=== PATIENT | female | born 1965 | race Two or more races ===

== ENCOUNTER 2024-07-01 15:01 | Observation (INO) | payer MEDICAID, SELFPAY ==
--- NOTE | 2024-07-01 15:17 | PD.EDSYNC ---
ED Syncope RME/HPI General Chief Complaint: Syncope / Near Syncope Stated Complaint: SYNCOPAL Time Seen by Provider: 07/01/24 15:21 Arrival date/time: 07/01/24 15:01 RME / HPI RME / HPI narrative: 58 year old female presents to the ED BIBA from work for evaluation after syncopal episode today. Per medics, syncopal episode was witnessed by coworkers and only lasting a few seconds. Patient reports in the last 3 days has felt very fatigued and weak, unclear why. Per family at bedside, patient had complained of feeling very tired last night. While in the ED reports very mild abdominal discomfort. No other complaints reported. Denies fevers, chills, chest pain, cough, shortness of breath, nausea, vomiting, diarrhea, or urinary symptoms. Related Data Allergies Allergy/AdvReac Type Severity Reaction Status Date / Time No Known Allergies Allergy Verified 07/01/24 17:33 Review of Systems Review of Systems Narrative Review of Systems: Constitutional: DENIES; Fevers Eyes: DENIES; Loss of vision Head/Ear/Nose: DENIES; Loss of hearing Throat: DENIES; Dysphagia Cardiovascular: SE HPI +syncope DENIES; Chest pain, dyspnea Respiratory: DENIES; Shortness of breath Gastrointestinal: SEE HPI +abd discomfort. DENIES; Rectal bleeding or melena. Genitourinary: DENIES; Dysuria (painful or difficult urination) Musculoskeletal: DENIES; Arthralgia (pain in a joint),; Skin: DENIES; Rash Neurological: DENIES; Loss of function or movement Psychiatric: DENIES; recent major life stressor, emotional problem, illicit drug use or abuse Endocrinology: DENIES; Weight change Hematologic/Lymphatic: DENIES; Abnormal bruising Allergic/Immunologic: DENIES; Urticaria (hives) Past Medical History Social History SMOKING STATUS: Never smoker ED Exam Narrative Physical exam: Physical Exam: General: The vital signs were reviewed. The patient is non-toxic, in no apparent distress and appears healthy with a patent airway, no respiratory distress and has no apparent circulatory problems. Head & Scalp: Normocephalic, atraumatic. Face: Appears normal and is without lesions, deformity. Ears: Left external pinna appears normal. Right external pinna appears normal. Eyes: The sclera is anicteric. No obvious photophobia. The Left and Right Orbit/Lid/Conjunctiva appears normal without swelling, discoloration or injection. Nose: The nose is without deformity, discharge or tenderness; Throat: Appears normal. The mucous membranes are pink and moist without exudates, redness or mass seen. The tongue appears normal. Neck: The neck is supple and no apparent mass or adenopathy. Chest: The chest wall is normal in size and symmetry and has no chest wall tenderness or crepitus. The patient displays normal ventilator effort without retractions, accessory muscle use and has adequate air movement bilaterally with no wheezes and no rales. Cardiovascular: Regular rate and rhythm; No murmurs, rubs, or gallops; Gastrointestinal: The abdomen appears normal. No obvious hernias or mass. The abdomen is soft and benign, non-distended, with no pain, no guarding and no rebound tenderness. Bowel sounds are present and normal sounding. No CVA tenderness. Genitourinary: Back/Spine: Nontender Extremities/Musculoskeletal/lymphatic: The bilateral upper and lower extremities are warm. There is no evidence of arterial insufficiency. There is no evidence of venous insufficiency/edema. The patient spontaneously moves bilateral upper and lower extremities with no pain and no limitation of movement. There is no apparent, injury or trauma. Skin: The skin is warm, dry and intact. No rashes. No petechia. No purpura. No abnormal bruising. The color is appropriate with no cyanosis. Mental status/Psychiatric: Mental status is appropriate for age. The patient has no apparent delusions, visual hallucinations, no apparent audible hallucinations. The patient has no apparent suicidal thoughts/ideation and no apparent homicidal thoughts/ideation. Neurological: The patient is awake, alert, interactive, cordial, cooperative and is oriented to name and situation. The patient follows commands and answers historical question with no impairment. There is no visual disturbance apparent. The pupils are equal and reactive bilaterally with normal eye movements and no diplopia The bilateral upper and lower extremities have normal strength, normal range of motion and normal functioning. The gait, station and balance not tested due to acuity Course Quality Measures none Orders Category Date Time Status EKG (ED ONLY) *Do not use* NOW Care 07/01/24 15:23 Completed EKG (ED Only) Stat Exams 07/01/24 15:23 Draft XR chest 1V portable Stat Exams 07/01/24 15:23 Completed Alcohol, Blood Medical Stat Lab 07/01/24 15:38 Completed B-Type Natriuretic Peptide Stat Lab 07/01/24 15:38 Completed Blood Culture (Lab) Stat Lab 07/01/24 15:33 Received CBC Stat Lab 07/01/24 15:38 Completed Comprehensive Metabolic Panel Stat Lab 07/01/24 15:38 Completed D-Dimer Stat Lab 07/01/24 15:38 Completed Drug Screen,Urine Stat Lab 07/01/24 15:23 Ordered Lactate (Lactic Acid) Stat Lab 07/01/24 15:38 Completed Lipase Stat Lab 07/01/24 15:38 Completed Magnesium Stat Lab 07/01/24 15:38 Completed Troponin I Stat Lab 07/01/24 15:38 Completed Urinalysis Stat Lab 07/01/24 15:23 Ordered Urinalysis, C/S if Indicated Stat Lab 07/01/24 15:23 Ordered Venous Blood Gas Stat Lab 07/01/24 15:38 Completed Sodium Chloride 0.9% 1000 ml [Ns] 1,000 ml Med 07/01/24 15:22 Active IV 150 mls/hr Sodium Chloride 0.9% 1000 ml [Ns] 1,000 ml Med 07/01/24 15:22 Discontinued IV 999 mls/hr Vital Signs Vital signs: Vital Signs Temperature 98.0 F 07/01/24 15:21 Pulse Rate 79 07/01/24 15:21 Respiratory Rate 16 07/01/24 15:21 Blood Pressure 102/69 07/01/24 15:21 Pulse Oximetry (%) 98 07/01/24 15:21 Oxygen Delivery Method Room Air 07/01/24 15:21 Pulse ox is 98% on room air which is adequate. Syncope MDM Narrative MDM Narrative:: Dorene Contreras am scribing for and in the presence of Dr. Conde. Patient presents with possible near syncopal event difficult to sort out the actual events because she is English speaking only and the bisque cleaner is a friend patient had an event where she got weak nauseated sweaty had some vague posterior neck symptoms and vague anterior chest symptoms. Clinical exam was unremarkable. On arrival and reevaluation at 1835 hrs. is normal again. Medical workup revealed EKG unremarkable D-dimer was negative CBC with white count 8.4 hemoglobin of 13.1 lactic acid 1.2 transaminases were negative BNP is lipase normal alcohol level 0 Patient is a smoker. Chest x-ray has some COPD but otherwise negative. Clinically patient does not appear ill but when I go back in the room the bisque cleaner states she still does not feel right she is scared that something happened uncertain if this is just anxiety and a panic attack though the friend states she is not an anxious person. So at 1840 hrs. and when to get a second troponin scanner chest rule out dissection in the care of be transferred Dr. Fuller at this time to follow-up on these results. Patient data External records reviewed:: [facility] previous records (I reviewed ED visit on 07/12/2023) and EMS form Clinical information provided by:: patient, EMS and family Social determinants that could affect healthcare access:: none Patient has the following chronic illnesses:: None How is presenting disease/condition affected by chronic disease/condition?: no chronic disease Evaluation data The following diagnostics were reviewed and interpreted by me:: lab results, radiology exam(s) and EKG tracing(s) (Sinus rhythm, rate , no STEMI) Lab and/or radiology exams considered but not ordered:: None Interpretation Summary: Ordering Physician: Misael Conde MD Date of Service: 07/01/24 Procedure(s): XR chest 1V portable Accession Number(s): [id number] cc: Misael Conde MD; Yinka Alvarado MD~ Examination: AP chest single view Technique one AP portable upright chest single view Exam date and time: July 01, 2024 1547 hours INDICATIONS: Chest pain today. FINDINGS: Normal heart size No pneumonia or pulmonary edema Moderate osteopenia IMPRESSION: No pneumonia or pulmonary edema Dictated By: Yinka Alvarado MD Signed By: <Electronically signed by Yinka Alvarado MD in [place]> 07/01/24 1558 Medications / Prescriptions Medications or Prescriptions considered but not ordered:: None Medication administrations:: Medication Administration History Sodium Chloride (Ns) 1,000 mls @ 150 mls/hr IV .[id number] ONE Stop: 07/01/24 22:01 Last Admin: 07/01/24 17:37 Dose: 150 mls/hr Documented By: TM Discontinued Medications Sodium Chloride (Ns) 1,000 mls @ 999 mls/hr IV .Q1H1M ONE Stop: 07/01/24 16:22 Last Admin: 07/01/24 17:36 Dose: 999 mls/hr Documented By: TM See above Consultations Consultation(s) initiated? (list below): No Diagnosis Syncope Differential Diagnosis: syncope due to orthostatic hypotension, vasovagal syncope, complete atrioventricular block and dehydration Most likely diagnosis given after review of the tests above:: Near syncopal event etiology unclear with diaphoresis with vague head and chest symptoms. CT scan pending to rule out thoracic etiology and second troponin to rule out occult ischemia Admission Indicated Admission indicated?: not indicated Explain why admission is indicated or not indicated:: Signed out to Dr. Fuller pending final disposition Admission Request Was there a request for admission?: No Disposition Plan Disposition Plan: other (specify) (Signed out to Dr. Fuller ) Discharge Plan Prescriptions/Referrals Referrals: No Primary/Family,Physician [Primary Care Provider] - In 1 week Problem List Clinical Impression: Near syncope, Diaphoresis, Tobacco use Patient/Caregiver Discharge Instructions Print Language: English
[2024-07-01 15:21] VITALS: BP 102/69; PULSE 79; RESP 16; TEMP 36.7; O2SAT 98
[2024-07-01 15:22] VITALS: BMI 23.6
--- NOTE | 2024-07-01 15:23 | XR_ITS ---
Examination: AP chest single view Technique one AP portable upright chest single view Exam date and time: July 01, 2024 1547 hours INDICATIONS: Chest pain today. FINDINGS: Normal heart size No pneumonia or pulmonary edema Moderate osteopenia IMPRESSION: No pneumonia or pulmonary edema
--- NOTE | 2024-07-01 15:23 | EKG_ITS ---
[facility] Test Date: 2024-07-01 Pat Name: HARLEY VALE Department: Room: - Gender: Female Staff Certified Nurse Midwife: : 1965 Requested By: Misael Conde Order Number: [id number] Reading MD: Misael Conde Measurements Intervals [place] Rate: 65 P: 70 CO: 155 QRS: 65 QRSD: 87 T: 56 QT: 407 QTc: 425 Interpretive Statements SINUS RHYTHM No previous ECG available for comparison /store/S0/[id number]/ecg/[id number].pdf
[2024-07-01 15:30] VITALS: BMI 23.6
[2024-07-01 15:50] LABS: Base Excess, Venous 1 (-3-3); Basophils % (Auto) 0 % (0-2.5); Eosinophils # (Auto) 0.1 Thou/mm3 (0.0-0.5); Eosinophils % (Auto) 1 % (0-10); Hematocrit 39.1 % (36.0-46.0); Hemoglobin 13.1 g/dL (12.0-16.0); Immature Granulocytes % (Auto) 0 % (0-0); Immature Granulocytes Auto 0.02 Thou/mm3 (0.00-0.00); Lactate (Lactic Acid) 1.2 mMol/L (0.4-2.0); Lymphocytes # (Auto) 1.2 Thou/mm3 (1.0-4.8); Lymphocytes % (Auto) 14 % (10-50); Mean Corpuscular HGB Conc 33.5 g/dl (31.0-37.0); Mean Corpuscular Hemoglobin 28.8 pg (25.0-35.0); Mean Corpuscular Volume 86 fL (80-100); Monocytes # (Auto) 0.4 Thou/mm3 (0.0-0.8); Monocytes % (Auto) 4 % (0-12); Neutrophils # (Auto) 6.7 Thou/mm3 (1.8-7.7); Neutrophils % (Auto) 81 % (37-80); Nucleated Red Blood Cell % 0 /100 WBC (0); O2 Saturation, Venous 73 % (96-97); PCO2, Venous 38 mmHg (36-56); PO2, Venous 35 mmHg (15-58); Platelet Count 250 Thou/mm3 (140-440); RDW Standard Deviation 39.9 fL (36.4-46.3); Red Blood Count 4.55 Miln/mm3 (4.00-5.20); White Blood Count 8.4 Thou/mm3 (3.6-11.0); pH, Venous 7.43 (7.33-7.66)
[2024-07-01 16:09] LABS: B-Type Natriuretic Peptide 22 pg/mL (0-100)
[2024-07-01 16:14] LABS: D-Dimer < 250 ng/mL (<600)
[2024-07-01 16:25] LABS: Alanine Aminotransferase 10 U/L (10-49); Albumin, Serum 4.4 gm/dL (3.5-5.0); Albumin/Globulin Ratio 1.8 (1.2-2.2); Alcohol, Blood Medical < 3.0 mg/dL (0-10.0); Alkaline Phosphatase 72 U/L (46-116); Anion Gap 6 (7-16); Aspartate Amino Transferase 16 U/L (0-34); BUN/Creatinine Ratio 16 Ratio (12-20); Bilirubin,Total 0.6 mg/dL (0.3-1.2); Blood Urea Nitrogen 16 mg/dL (9-23); Calcium 9.3 mg/dL (8.3-10.6); Calcium (Corrected) 9.3 mg/dL (8.5-10.1); Carbon Dioxide 29.2 mMol/L (20.0-31.0); Chloride 103 mMol/L (98-107); Estimated Creatinine Clearance 63.3 mL/min (>60); Globulin 2.4 gm/dL (2.3-3.5); Glucose 113 mg/dL (74-106); Lipase 29 U/L (12-53); Osmolality,Calculated 277 (275-295); Potassium 4.5 mMol/L (3.4-5.1); Sodium 138 mMol/L (136-145); Total Protein 6.8 gm/dL (5.7-8.2); Troponin I < 0.002 ng/mL (0.0-0.045); eGFR > 60 See Note
[2024-07-01 16:32] VITALS: BP 107/75; PULSE 65; RESP 16; TEMP 36.7; O2SAT 97
[2024-07-01] MEDS: SODIUM CHLORIDE 0.9% 1000 ML 1,000 ML 999 ML IV (17:36)
[2024-07-01] MEDS: SODIUM CHLORIDE 0.9% 1000 ML 1,000 ML 150 ML IV (17:37)
[2024-07-01 18:00] VITALS: BP 105/72; PULSE 65; RESP 16; TEMP 36.8; O2SAT 98
--- NOTE | 2024-07-01 18:42 | XR_ITS ---
Examination: CTA chest with intravenous contrast 2-D reconstructions 3-D reconstructions, vascular Date and time of exam: July 01, 20242021 hrs. Indications: Onset chest pain shortness of breath today CTDI: vol (mGy) 24.45 DLP: (mGycm) 590 Technique: Multiple axial sections of the thorax have been obtained. 3 mm slice thickness, from below the hemidiaphragms to above the apices of the lungs. Mediastinal and lung density settings have been obtained. 2-D sagittal and coronal reconstructions. 3-D angiographic renderings, 3-D volume renderings, 3D post processing, vascular maximum intensity projections obtained. Contrast administered is 100 cc Isovue-370. Low dose protocols were performed. One or more of the following dose reduction techniques were used; automated exposure control, adjustment of the mA and/or KV according to patient size, use of iterative reconstruction technique. Findings: Right-sided thoracic aortic arch No thoracic aortic aneurysm dilatation or dissection Pulmonary artery segments are not enlarged No pulmonary artery emboli Mild enlargement cardiac contour Mild vascular congestion Mild pneumonia both bases Minimal bilateral pleural effusion Fatty infiltration throughout the liver No gallstones Abnormal retroperitoneal density surrounding the aorta as well as surrounding the kidneys No hydronephrosis Impression: Right-sided thoracic aortic arch, negative for thoracic aortic aneurysm dilatation or dissection Negative for pulmonary artery emboli Mild vascular congestion Abnormal density in the retroperitoneum surrounding the abdominal aorta and the kidneys, differential would include lymphadenopathy, retroperitoneal fibrosis, retroperitoneal infectious process, clinical correlation advised Recommend CTA abdomen pelvis post contrast in the a.m. when the current contrast load has cleared
--- NOTE | 2024-07-01 18:45 | XR_ITS ---
Examination: CT brain head without contrast. 2-D sagittal coronal reconstructions Date and time of exam:July 01, 20242031 hrs. Indications: Syncopal episode today with headache CTDI: vol (mGy):44.0 DLP: (mGycm):919 Technique: Multiple CT axial sections of the brain have been obtained, 5 mm slice thickness. Contrast has not been administered. 2-D sagittal, coronal reconstructions have been obtained Low dose protocols were performed. One or more of the following dose reduction techniques were used; automated exposure control, adjustment of the mA and/or KV according to patient size, use of iterative reconstruction technique. Findings: No significant ventricular enlargement. Intra-axial or extra-axial hemorrhage density is not seen. No mass effect or midline shift Basal cisterns are not remarkable. Fourth ventricle is midline. Cranial vault intact. Impression: Negative for acute hemorrhage, mass effect or midline shift Significant chronic ethmoid sinusitis Acute left sphenoid sinusitis
--- NOTE | 2024-07-01 18:48 | EDNOTE_ITS ---
Emergency Room Addendum <Elham Stein - Last Filed: 07/01/24 21:58> Addendum Narrative: 1800: Care assumed from Dr. Conde, the previous shift emergency physician. Past medical, surgical, social and family history reviewed. Vitals and home medications reviewed. I will assume the care of the patient at this time, pending chest CTA, head CT, remainder of labs, and final disposition. Please refer to the emergency department record for history and examination from initial visit.? Physical exam by me shows patient under no acute distress at this time. Lungs are clear. Repeat trop negative, < 0.020. RADIOLOGY Procedure(s): CT head/brain wo con Accession Number(s): [id number] cc: Misael Conde MD; Yinka Alvarado MD; NO PRIMARY/FAMILY,PHYSICIAN~ Examination: CT brain head without contrast. 2-D sagittal coronal reconstructions Date and time of exam:July 01, 20242031 hrs. Indications: Syncopal episode today with headache CTDI: vol (mGy):44.0 DLP: (mGycm):919 Technique: Multiple CT axial sections of the brain have been obtained, 5 mm slice thickness. Contrast has not been administered. 2-D sagittal, coronal reconstructions have been obtained Low dose protocols were performed. One or more of the following dose reduction techniques were used; automated exposure control, adjustment of the mA and/or KV according to patient size, use of iterative reconstruction technique. Findings: No significant ventricular enlargement. Intra-axial or extra-axial hemorrhage density is not seen. No mass effect or midline shift Basal cisterns are not remarkable. Fourth ventricle is midline. Cranial vault intact. Impression: Negative for acute hemorrhage, mass effect or midline shift Significant chronic ethmoid sinusitis Acute left sphenoid sinusitis Dictated By: Yinka Alvarado MD Procedure(s): CT angio chest Accession Number(s): [id number] cc: Misael Conde MD; Yinka Alvarado MD; NO PRIMARY/FAMILY,PHYSICIAN~ Examination: CTA chest with intravenous contrast 2-D reconstructions 3-D reconstructions, vascular Date and time of exam: July 01, 20242021 hrs. Indications: Onset chest pain shortness of breath today CTDI: vol (mGy) 24.45 DLP: (mGycm) 590 Technique: Multiple axial sections of the thorax have been obtained. 3 mm slice thickness, from below the hemidiaphragms to above the apices of the lungs. Mediastinal and lung density settings have been obtained. 2-D sagittal and coronal reconstructions. 3-D angiographic renderings, 3-D volume renderings, 3D post processing, vascular maximum intensity projections obtained. Contrast administered is 100 cc Isovue-370. Low dose protocols were performed. One or more of the following dose reduction techniques were used; automated exposure control, adjustment of the mA and/or KV according to patient size, use of iterative reconstruction technique. Findings: Right-sided thoracic aortic arch No thoracic aortic aneurysm dilatation or dissection Pulmonary artery segments are not enlarged No pulmonary artery emboli Mild enlargement cardiac contour Mild vascular congestion Mild pneumonia both bases Minimal bilateral pleural effusion Fatty infiltration throughout the liver No gallstones Abnormal retroperitoneal density surrounding the aorta as well as surrounding the kidneys No hydronephrosis Impression: Right-sided thoracic aortic arch, negative for thoracic aortic aneurysm dilatation or dissection Negative for pulmonary artery emboli Mild vascular congestion Abnormal density in the retroperitoneum surrounding the abdominal aorta and the kidneys, differential would include lymphadenopathy, retroperitoneal fibrosis, retroperitoneal infectious process, clinical correlation advised Recommend CTA abdomen pelvis post contrast in the a.m. when the current contrast load has cleared Dictated By: Yinka Alvarado MD Procedure(s): XR chest 1V portable Accession Number(s): [id number] cc: Misael Conde MD; Yinka Alvarado MD~ Examination: AP chest single view Technique one AP portable upright chest single view Exam date and time: July 01, 2024 1547 hours INDICATIONS: Chest pain today. FINDINGS: Normal heart size No pneumonia or pulmonary edema Moderate osteopenia IMPRESSION: No pneumonia or pulmonary edema Dictated By: Yinka Alvarado MD <Annalise Kwadwo - Last Filed: 07/02/24 05:49> Addendum Narrative: 1800: Care assumed from Dr. Conde, the previous shift emergency physician. Past medical, surgical, social and family history reviewed. Vitals and home medications reviewed. I will assume the care of the patient at this time, pending chest CTA, head CT, remainder of labs, and final disposition. Please refer to the emergency department record for history and examination from initial visit.? Physical exam by me shows patient under no acute distress at this time. Lungs are clear. Repeat trop negative, < 0.020. Patient received 100mL of contrast. Per Dr. Alvarado, patient can get a repeat CT abdomen pelvis this morning. I will repeat her BMP to ensure the patient's kidneys are stable, and if it's normal, I will re-order the CT. 0600: Care signed out to Dr. Gallo (emergency physician). Past medical, surgical, social and family history reviewed. Vitals and home medications reviewed. Results and treatment plan discussed. They will assume the care of the patient at this time and will follow the patient, pending BMP, and CTA abdomen pelvis if it's normal. RADIOLOGY Procedure(s): CT head/brain wo con Accession Number(s): [id number] cc: Misael Conde MD; Yinka Alvarado MD; NO PRIMARY/FAMILY,PHYSICIAN~ Examination: CT brain head without contrast. 2-D sagittal coronal reconstructions Date and time of exam:July 01, 20242031 hrs. Indications: Syncopal episode today with headache CTDI: vol (mGy):44.0 DLP: (mGycm):919 Technique: Multiple CT axial sections of the brain have been obtained, 5 mm slice thickness. Contrast has not been administered. 2-D sagittal, coronal reconstructions have been obtained Low dose protocols were performed. One or more of the following dose reduction techniques were used; automated exposure control, adjustment of the mA and/or KV according to patient size, use of iterative reconstruction technique. Findings: No significant ventricular enlargement. Intra-axial or extra-axial hemorrhage density is not seen. No mass effect or midline shift Basal cisterns are not remarkable. Fourth ventricle is midline. Cranial vault intact. Impression: Negative for acute hemorrhage, mass effect or midline shift Significant chronic ethmoid sinusitis Acute left sphenoid sinusitis Dictated By: Yinka Alvarado MD Procedure(s): CT angio chest Accession Number(s): [id number] cc: Misael Conde MD; Yinka Alvarado MD; NO PRIMARY/FAMILY,PHYSICIAN~ Examination: CTA chest with intravenous contrast 2-D reconstructions 3-D reconstructions, vascular Date and time of exam: July 01, 20242021 hrs. Indications: Onset chest pain shortness of breath today CTDI: vol (mGy) 24.45 DLP: (mGycm) 590 Technique: Multiple axial sections of the thorax have been obtained. 3 mm slice thickness, from below the hemidiaphragms to above the apices of the lungs. Mediastinal and lung density settings have been obtained. 2-D sagittal and coronal reconstructions. 3-D angiographic renderings, 3-D volume renderings, 3D post processing, vascular maximum intensity projections obtained. Contrast administered is 100 cc Isovue-370. Low dose protocols were performed. One or more of the following dose reduction techniques were used; automated exposure control, adjustment of the mA and/or KV according to patient size, use of iterative reconstruction technique. Findings: Right-sided thoracic aortic arch No thoracic aortic aneurysm dilatation or dissection Pulmonary artery segments are not enlarged No pulmonary artery emboli Mild enlargement cardiac contour Mild vascular congestion Mild pneumonia both bases Minimal bilateral pleural effusion Fatty infiltration throughout the liver No gallstones Abnormal retroperitoneal density surrounding the aorta as well as surrounding the kidneys No hydronephrosis Impression: Right-sided thoracic aortic arch, negative for thoracic aortic aneurysm dilatation or dissection Negative for pulmonary artery emboli Mild vascular congestion Abnormal density in the retroperitoneum surrounding the abdominal aorta and the kidneys, differential would include lymphadenopathy, retroperitoneal fibrosis, retroperitoneal infectious process, clinical correlation advised Recommend CTA abdomen pelvis post contrast in the a.m. when the current contrast load has cleared Dictated By: Yinka Alvarado MD ------- Procedure(s): XR chest 1V portable Accession Number(s): [id number] cc: Misael Conde MD; Yinka Alvarado MD~ Examination: AP chest single view Technique one AP portable upright chest single view Exam date and time: July 01, 2024 1547 hours INDICATIONS: Chest pain today. FINDINGS: Normal heart size No pneumonia or pulmonary edema Moderate osteopenia
[2024-07-01 19:40] VITALS: BP 111/74; PULSE 65; RESP 18; TEMP 36.7; O2SAT 98
[2024-07-01 19:41] LABS: Troponin I < 0.020 ng/mL (0.0-0.045)
--- NOTE | 2024-07-01 19:45 | PC.NURSE ---
Pt ambulated to bathroom with steady gait; stand-by assist provided for safety. Urine specimen collected and sent to lab.
--- NOTE | 2024-07-01 19:56 | PC.NURSE ---
Ct called to inform them pt is ready for CT at this time, spoke to Reji.
[2024-07-01 20:00] LABS: Collection Type, Urine Clean Catch
[2024-07-01 20:13] LABS: Bilirubin,Urine Negative (Negative); Blood,Urine Negative (Negative); Clarity,Urine Clear (Clear/Hazy); Color,Urine Lt-Yellow (Lt Yel-Yel); Culture Indicated,Urine Not Indicated; Glucose, Urine Negative (Negative); Hyaline Casts,Urine 1 /hpf (0-1); Ketones,Urine 1+ (Negative); Leukocyte Esterase,Urine Negative (Negative); Nitrite,Urine Negative (Negative); Protein,Urine Trace (Neg - Trace); RBC,Urine 2 /hpf (0-3); Squamous Epithelial Cell,Urine < 1 /hpf (0-5); Urobilinogen,Urine Negative mg/dL (0.0-1.0); WBC,Urine 1 /hpf (0-5)
--- NOTE | 2024-07-01 20:24 | PC.NURSE ---
Pt to CT scan at this time.
[2024-07-01 23:03] LABS: Amphetamine/Methamp Scrn,U Negative (Negative); Barbiturate Screen,Urine Negative (Negative); Benzodiazepines Screen,Urine Negative (Negative); Benzoylecgonine Screen, Ur Negative (Negative); Fentanyl Screen,Urine Negative (Negative); Opiate Screen,Urine Negative (Negative); THC Screen,Urine Negative (Negative)
[2024-07-01 23:40] VITALS: BP 116/68; PULSE 65; RESP 20; TEMP 36.7; O2SAT 96
[2024-07-02] VITALS (14 sets, daily range): BP systolic 99–138; BP diastolic 67–81; PULSE 64–85; RESP 12–21; TEMP 36.4–36.9; O2SAT 95–99; BMI 25.1
--- NOTE | 2024-07-02 06:32 | XR_ITS ---
Examination: CTA abdomen, with intravenous contrast. CTA pelvis, with intravenous contrast. 2-D sagittal and coronal reconstructions. 3-D reconstructions. Date and time of exam: July 02, 2024 0854 hours INDICATIONS: Shortness of breath chest pain today, abnormal retroperitoneal density noticed on CT chest examination yesterday CTDI vol (mgy) 10.9 DLP (MGycm) 625 Technique: Multiple CTA images, 2.0 mm slice thickness, obtained chest, abdomen, pelvis, with the high-resolution 64 slice scanner. 100 cc Isovue-370 is administered intravenously. Sagittal and coronal 2-D reconstructions are obtained. 3-D reconstructions, angiographic images are obtained. 3-D postprocessing, including vascular maximum intensity projections. Low dose protocols were performed. One or more of the following dose reduction techniques were used; automated exposure control, adjustment of the mA and/or KV according to patient size, use of iterative reconstruction technique. Findings: Small bilateral pleural effusions No focal liver or splenic lesions Suspicious for small gallstones No pancreatic mass Retroperitoneal density surrounds the kidneys which may represent fluid, which extends caudad into the abdomen and pelvis Abdominal aorta is not enlarged No bowel obstruction No pericecal inflammatory change There is mild diffuse wall thickening involving the colon Retroverted uterus with areas of calcified fibroid degeneration Moderate osteopenia Urinary bladder is intact IMPRESSION: Retroperitoneal density surrounds the kidneys extending into the lower abdomen and pelvis which appears to be fluid, differential would include prominent urinary tract infection, nephritis, primary hepatocellular disease producing ascites No definite pericaval or periaortic significant lymphadenopathy No bowel obstruction Recommend hepatobiliary sonography follow-up to exclude gallstones
[2024-07-02 06:49] LABS: Anion Gap 5 (7-16); BUN/Creatinine Ratio 17 Ratio (12-20); Blood Urea Nitrogen 12 mg/dL (9-23); Calcium 8.5 mg/dL (8.3-10.6); Carbon Dioxide 27.7 mMol/L (20.0-31.0); Chloride 107 mMol/L (98-107); Creatinine (Component) 0.7 mg/dL (0.6-1.3); Estimated Creatinine Clearance 90.4 mL/min (>60); Glucose 96 mg/dL (74-106); Osmolality,Calculated 279 (275-295); Potassium 3.9 mMol/L (3.4-5.1); Sodium 140 mMol/L (136-145); eGFR > 60 See Note
--- NOTE | 2024-07-02 07:45 | PC.NURSE ---
Pt. here from home to room 9, pt. states at this time she just has a CARBAJAL, 10/17, pt. states she wants to rest, pt. denies nausea, vomiting or weakness at this time. Pt. up to use RR, steady on her feet, no s/s of distress at this time.
--- NOTE | 2024-07-02 09:39 | PD.EDADDENDU ---
Emergency Room Addendum Addendum Narrative: 0600: Care assumed from Dr. Fuller, the previous shift emergency physician. Past medical, surgical, social and family history reviewed. Vitals and home medications reviewed. I will assume the care of the patient at this time, pending CTA abdomen/pelvis. Please refer to the emergency department record for history and examination from initial visit.? EMS notes reviewed by me. Nursing notes reviewed by me. Vital signs reviewed by me. [facility] medical records reviewed by me. 1000: I discussed CT results with radiologist Dr. Alvarado. Reports he may be able to drain the fluid for testing. An IR retroperitoneal drainage was ordered. 1015: With the help of an pile driving superintendent we reviewed all the results, analysis, and treatment plans with the patient. She is in agreement with plan for IR drainage. 1035: I spoke with residents working with hospitalist Dr. Gurrola. Discussed patients PMHx, HPI, ED course, exam findings, labs, and radiology results. Will come evaluate the patient in the ED. Patient has been accepted for admission by Dr. Gurrola. RADIOLOGY Ordering Physician: Dashawn Gallo MD Date of Service: 07/02/24 Procedure(s): CT angio abdomen pelvis Accession Number(s): [id number] cc: Dashawn Gallo MD; Yinka Alvarado MD; NO PRIMARY/FAMILY,PHYSICIAN~ Examination: CTA abdomen, with intravenous contrast. CTA pelvis, with intravenous contrast. 2-D sagittal and coronal reconstructions. 3-D reconstructions. Date and time of exam: July 02, 2024 0854 hours INDICATIONS: Shortness of breath chest pain today, abnormal retroperitoneal density noticed on CT chest examination yesterday CTDI vol (mgy) 10.9 DLP (MGycm) 625 Technique: Multiple CTA images, 2.0 mm slice thickness, obtained chest, abdomen, pelvis, with the high-resolution 64 slice scanner. 100 cc Isovue-370 is administered intravenously. Sagittal and coronal 2-D reconstructions are obtained. 3-D reconstructions, angiographic images are obtained. 3-D postprocessing, including vascular maximum intensity projections. Low dose protocols were performed. One or more of the following dose reduction techniques were used; automated exposure control, adjustment of the mA and/or KV according to patient size, use of iterative reconstruction technique. Findings: Small bilateral pleural effusions No focal liver or splenic lesions Suspicious for small gallstones No pancreatic mass Retroperitoneal density surrounds the kidneys which may represent fluid, which extends caudad into the abdomen and pelvis Abdominal aorta is not enlarged No bowel obstruction No pericecal inflammatory change There is mild diffuse wall thickening involving the colon Retroverted uterus with areas of calcified fibroid degeneration Moderate osteopenia Urinary bladder is intact IMPRESSION: Retroperitoneal density surrounds the kidneys extending into the lower abdomen and pelvis which appears to be fluid, differential would include prominent urinary tract infection, nephritis, primary hepatocellular disease producing ascites No definite pericaval or periaortic significant lymphadenopathy No bowel obstruction Recommend hepatobiliary sonography follow-up to exclude gallstones Dictated By: Yinka Alvarado MD Signed By: <Electronically signed by Yinka Alvarado MD in [place]> 07/02/24 0908
--- NOTE | 2024-07-02 11:43 | XR_ITS ---
Examination: CT-guided percutaneous catheter aspiration abdominal ascites CT abdomen without intravenous contrast Date and time of procedure: July 02, 2024 1327 hours INDICATIONS: Abnormal fluid surrounding the kidneys and throughout the abdomen on CT abdomen pelvis study July 02, 2024 0854 hours Informed consent provided. A timeout was completed verifying correct patient, procedure, site and positioning. Technique: Axial 3 mm sections were obtained for localization of the abdominal minimal retroperitoneal fluid Appropriate area is marked. The patient's site was prepped and draped in sterile fashion Maximal sterile barrier technique utilized, including hand hygiene Local anesthesia was obtained with 1% lidocaine. Low dose protocols were performed. One or more of the following dose reduction techniques were used; automated exposure control, adjustment of the mA and/or KV according to patient size, use of iterative reconstruction technique. Utilizing CT guidance 5 Cypriot catheter placed in the retroperitoneal fluid and small samples aspirated for culture and sensitivity as well as cytologic analysis Patient appears in stable condition during this procedure. At completion of the procedure, the patient is in satisfactory condition. Estimated blood loss 0 cc Complete pathology report collection sensitivity report to follow. Impression: Successful CT-guided aspiration retroperitoneal fluid
--- NOTE | 2024-07-02 12:18 | ESHP_ITS ---
<Statement entered by Clark Hernadez MD - 07/02/24 16:45> I discussed with and supervised my co-resident involved in the care of this patient. I agree with the assessment and plan as documented above. Clark Hernadez,PGY-3 Disclaimer: Despite multiple revisions, due to the dictation software being used, the document below may not be free of grammatical errors including phonetic/typographic errors. However, this does not deter from our commitment to providing health care in the patient's best interest in mind. Documentation for date of: 07/02/24 HPI History of Present Illness History of present illness: This is a 58-year-old female, otherwise healthy, with no PMHx, who presented to the ED following presyncopal episode. Patient reports she was at work on the day of admission, when she felt a sudden but brief burning sensation that started in her lower back bilaterally and traveled up her spine. Subsequently she felt like she was fainting and let herself down to the floor. Did not fall or consciousness. Remembers the entire event. She called the ambulance by herself while she was on the ground. Additionally, she reports associated symptoms of fevers and chills that have resolved since. She reports similar symptoms of sensation described above that occurred 5 years ago however she did not feel like fainting at that time. No workup was done then. At the time when I saw patient she was complaining of mild headache behind the occiput. Otherwise she was feeling fine. Denies severe headaches, changes, auditory changes, chest pain, shortness of breath, palpitation, abdominal pain, N/V/D/C, dysuria, urinary frequency or urgencies, or gynecological abnormalities including vaginal bleed or discharge or menstrual abnormalities. She is A0, postmenopausal >5 year, not sexually active. ED COURSE: Vitals within normal limit. Labs were unremarkable including: CBC, coags, blood gas, chemistry panel, UA and U tox. Left foot x-ray negative for fracture. Radiographical findings: * CXR negative for pneumonia or pulmonary edema. * EKG shows sinus rhythm, no ST changes. * Chest CTA shows retroperitoneal density surrounding abdominal aorta and kidneys with differential to include lymphadenopathy or retroperitoneal fibrosis or retropharyngeal infectious process. There is also mild vascular congestion. No signs of pulmonary embolism. * Head CTA showed significant chronic ethmoid sinusitis, acute left sphenoid sinusitis, negative for acute hemorrhage or mass or midline shift. * CTA abdominal pelvis demonstrated retroperitoneal findings as above with suspected UTI, nephritis, diabetes as a result primary hepatocellular disease. No pericardial or periaortic lymphadenopathy. No bowel obstruction Patient was admitted for presyncopal workup and evaluation of retroperitoneal findings as above. PMHx: None Meds: Occasional TYLENOL for pain. PSH: Distant uncomplicated myomectomy and appendectomy. Allergies: NKA SH: Denies alcohol, tobacco or drug use. Exam Vital Signs Temp Pulse Resp BP Pulse Ox O2 Del Method 98.1 F 66 18 125/81 97 Room Air 07/02/24 10:24 07/02/24 10:24 07/02/24 10:24 07/02/24 10:24 07/02/24 10:24 07/02/24 10:24 Narrative Exam GENERAL * Normal-appearing middle-aged female, no apparent distress. On room air. HEENT * NCAT.?JIM. Oral mucosa is moist. Patent Nares NECK * Supple, nontender, no thyromegaly, no meningismus, no JVD, no step offs CHEST * RRR, no m/g/r * CTAB, no w/r/r. Symmetrical chest rise. No intercostal subcostal retraction * Atraumatic, nontender, no crepitus, symmetrical expansion. ABDOMEN * Soft, flat, nontender. No guarding/rebound tenderness/masses. * Bowel sounds presents EXTREMITIES * Nontender, no cyanosis, no edema * No edema/cyanosis.? SKIN * Warm and dry, no jaundice/rashes. NEUROMUSCULAR * No lumbar or midline, no CVA, no paraspinal muscle spasm or tenderness. * Moves all 4 extremities well, with full ROM and good CSM. * MORROW x4, CN II-XII grossly intact. * No focal neurologic deficits. PSYCHIATRY * Normal mood and affect, cooperative, no SI or HI or hallucinations. Results: Labs 07/01/24 15:38 07/02/24 06:00 Labs: Short CBC 07/01/24 Range/Units 15:38 WBC 8.4 (3.6-11.0) Thou/mm3 Hgb 13.1 (12.0-16.0) g/dL Hct 39.1 (36.0-46.0) % Plt Count 250 (140-440) Thou/mm3 BMP 07/01/24 07/02/24 15:38 06:00 Sodium 138 140 Potassium 4.5 3.9 D Chloride 103 107 Carbon Dioxide 29.2 27.7 BUN 16 12 Creatinine 1.0 0.7 Glucose 113 H 96 Calcium 9.3 8.5 Cardiac Enzymes 07/01/24 07/01/24 Range/Units 15:38 19:03 Troponin I < 0.002 < 0.020 (0.0-0.045) ng/mL Liver Function 07/01/24 Range/Units 15:38 Total Bilirubin 0.6 (0.3-1.2) mg/dL AST 16 (0-34) U/L ALT 10 (10-49) U/L Alkaline Phosphatase 72 (46-116) U/L Albumin 4.4 (3.5-5.0) gm/dL Urine 07/01/24 Range/Units 19:50 Urine Color Lt-Yellow (Lt Yel-Yel) Urine Clarity Clear (Clear/Hazy) Urine pH 7.0 (5.0-7.0) Ur Specific [place] 1.020 (1.001-1.035) Urine Protein Trace (Neg - Trace) Urine Glucose (UA) Negative (Negative) ABG Interpretation ABG results: 07/01/24 15:38 VBG pH 7.43 VBG pCO2 38 VBG pO2 35 VBG Base Excess 1 Quality Measures Quality Measures none Medications Home Medications and Allergies Allergies Allergy/AdvReac Type Severity Reaction Status Date / Time No Known Allergies Allergy Verified 07/01/24 17:33 Visit Medications Discontinued Medications Sodium Chloride (Ns) 1,000 mls @ 150 mls/hr IV .Q6H40M ONE Stop: 07/01/24 22:01 Last Infusion: 07/02/24 00:19 Dose: Infused Sodium Chloride (Ns) 1,000 mls @ 999 mls/hr IV .Q1H1M ONE Stop: 07/01/24 16:22 Last Infusion: 07/01/24 19:43 Dose: Infused Assessment & Plan Plan In summary: 58-year-old female otherwise healthy with no past medical history admitted for presyncopal episode and workup for likely incidental retroperitoneal fluid collection. Presyncope DDx: Orthostatics, acute left sphenoid sinusitis, nephritis, possible UTI, possible cardiogenic. No significant past medical history, not on any long-term medications. No electrolyte abnormalities. No UTI on UA. No signs of dehydration. CXR negative. EKG sinus rhythm without acute ST changes. Troponin is normal. No acute pathology on CT head, although there was chronic ethmoid sinusitis and acute left sphenoid sinusitis which could be a contributor. Physical exam is benign. ? Pending echocardiogram ? Pending orthostatics ? Pending thyroid function ? Physical therapy ? Pending pancultures Abnormal retroperitoneal fluid Chest CTA shows retroperitoneal density surrounding abdominal aorta and kidneys with differential to include lymphadenopathy or retroperitoneal fibrosis or retropharyngeal infectious process. There is also mild vascular congestion. No signs of pulmonary embolism. CTA abdominal pelvis demonstrated retroperitoneal findings as above with suspected UTI, nephritis, diabetes as a result primary hepatocellular disease. No pericardial or periaortic lymphadenopathy. No bowel obstruction. No signs of symptoms of active malignancy including weight loss, night sweats. No family history of malignancy. She has a history of a uterine fibroid with myomectomy. Possible, without abnormal vaginal bleed. ? Pending hCG, CA 19?9, AFP, CEA ? Pending CT-guided retroperitoneal sample ? Consider gynecological consult. Health maintenance Diet: Regular diet GI prophylaxis: Not indicated DVT prophylaxis: HEPARIN Antibiotics: Not indicated CODE STATUS: Full code Disposition: Pending retroperitoneal sampling results. Patient case was discussed with attending, Jose Cruz Graham MD and senior residents Dr. Hernadez and Dr. Sanford. Nahum Millan DO PGYI Attending Provider Attestation/Addendum I discussed with and supervised the resident physician who took care of this patient. I agree with the assessment and plan as above.
[2024-07-02 13:02] LABS: Partial Thromboplastin Time 23.4 Seconds (22.0-36.0)
[2024-07-02] MEDS: fentaNYL CIT INJ 50 mCg/ML AMP 2ML 150 MCG IVP (13:58)
--- NOTE | 2024-07-02 14:25 | PC.NURSE ---
Aria GREENE gave me report, stated pt. had a CT guided fluid aspiration of her abdomen, Aria stated they removed a small amount of fluid, pt. tolerated well, and has a dressing intact to her left lower back.
--- NOTE | 2024-07-02 14:30 | PC.NURSE ---
patient is awake, alert, breathing unlabored, s/p ct guided fluid aspiration of abdomen, dressing to left lower back dry with no active bleeding, patient transferred back to ER #9 accompanied by Finn GREENE, bedside report given to Christiana GREENE. specimen were take out at 1404 and will be sent out to lab for testing.
--- NOTE | 2024-07-02 14:38 | ESCONSULT_ITS ---
PREDATORY ANIMAL TRAPPER HPI Data of Consult Requesting Physician: Jose Cruz Graham MD Primary Care Provider: Physician No Primary/Family Consult Narrative cc:: cc: Jose Cruz Graham MD Meds Home Medications and Allergies Allergies Allergy/AdvReac Type Severity Reaction Status Date / Time No Known Allergies Allergy Verified 07/01/24 17:33 Exam - PREDATORY ANIMAL TRAPPER Vital Signs Temp Pulse Resp BP Pulse Ox O2 Del Method 98.0 F 65 18 103/69 97 Room Air 07/02/24 12:07/02/24 12:07/02/24 12:07/02/24 12:07/02/24 12:07/02/24 12:25 PREDATORY ANIMAL TRAPPER - Results Labs 07/01/24 15:38 07/02/24 06:00 Labs: Short CBC 07/01/24 Range/Units 15:38 WBC 8.4 (3.6-11.0) Thou/mm3 Hgb 13.1 (12.0-16.0) g/dL Hct 39.1 (36.0-46.0) % Plt Count 250 (140-440) Thou/mm3 BMP 07/01/24 07/02/24 15:38 06:00 Sodium 138 140 Potassium 4.5 3.9 D Chloride 103 107 Carbon Dioxide 29.2 27.7 BUN 16 12 Creatinine 1.0 0.7 Glucose 113 H 96 Calcium 9.3 8.5 Cardiac Enzymes 07/01/24 07/01/24 Range/Units 15:38 19:03 Troponin I < 0.002 < 0.020 (0.0-0.045) ng/mL Liver Function 07/01/24 Range/Units 15:38 Total Bilirubin 0.6 (0.3-1.2) mg/dL AST 16 (0-34) U/L ALT 10 (10-49) U/L Alkaline Phosphatase 72 (46-116) U/L Albumin 4.4 (3.5-5.0) gm/dL Urine 07/01/24 Range/Units 19:50 Urine Color Lt-Yellow (Lt Yel-Yel) Urine Clarity Clear (Clear/Hazy) Urine pH 7.0 (5.0-7.0) Ur Specific [place] 1.020 (1.001-1.035) Urine Protein Trace (Neg - Trace) Urine Glucose (UA) Negative (Negative) ABG Interpretation ABG results: 07/01/24 15:38 VBG pH 7.43 VBG pCO2 38 VBG pO2 35 VBG Base Excess 1 Assessment and Plan Assessment and plan (1) Retroperitoneal fluid collection: Status: Acute Assessment and plan: 58yo F presenting with near-syncope. CT abd/pelvis findings reviewed. Normal uterus (degenerative fibroids noted which is a normal finding), ovaries not mentioned presumably due to small size related to post-menopausal status. Retroperitoneal fluid collection is not a sand screener-related issue, which I discussed with the inquiring resident. Consider consultation of general surgery if indicated. Happy to be re-consulted if any pertinent sand screener issues are discovered on workup. Tarsha Wagoner MD
[2024-07-02 15:08] LABS: Carcinoembryonic Antigen 2.3 ng/mL (0.0-5.0)
[2024-07-02] MEDS: ACETAMINOPHEN 500 MG TABLET 1000 MG PO (20:29)
[2024-07-02] MEDS: NICOTINE PATCH 21 MG/24 HR PATCH.TD24 TOP (20:30)
[2024-07-02 21:56] LABS: HCG Qualitative,Urine Negative
[2024-07-03] VITALS: BP 95/59; PULSE 68; RESP 18; TEMP 36.4; O2SAT 95
[2024-07-03 04:00] VITALS: BP 98/68; PULSE 74; RESP 18; TEMP 36.1; O2SAT 97
[2024-07-03 06:04] LABS: Basophils % (Auto) 1 % (0-2.5); Eosinophils # (Auto) 0.2 Thou/mm3 (0.0-0.5); Eosinophils % (Auto) 3 % (0-10); Hematocrit 33.7 % (36.0-46.0); Hemoglobin 11.2 g/dL (12.0-16.0); Immature Granulocytes % (Auto) 0 % (0-0); Immature Granulocytes Auto 0.01 Thou/mm3 (0.00-0.00); Lymphocytes # (Auto) 1.6 Thou/mm3 (1.0-4.8); Lymphocytes % (Auto) 31 % (10-50); Mean Corpuscular HGB Conc 33.2 g/dl (31.0-37.0); Mean Corpuscular Hemoglobin 28.6 pg (25.0-35.0); Mean Corpuscular Volume 86 fL (80-100); Monocytes # (Auto) 0.3 Thou/mm3 (0.0-0.8); Monocytes % (Auto) 6 % (0-12); Neutrophils # (Auto) 3.1 Thou/mm3 (1.8-7.7); Neutrophils % (Auto) 59 % (37-80); Nucleated Red Blood Cell % 0 /100 WBC (0); Platelet Count 191 Thou/mm3 (140-440); RDW Standard Deviation 40.1 fL (36.4-46.3); Red Blood Count 3.92 Miln/mm3 (4.00-5.20); White Blood Count 5.2 Thou/mm3 (3.6-11.0)
[2024-07-03 07:03] LABS: Potassium 4.1 mMol/L (3.4-5.1); Sodium 140 mMol/L (136-145)
[2024-07-03 07:04] LABS: Alanine Aminotransferase < 7 U/L (10-49); Albumin, Serum 4.1 gm/dL (3.5-5.0); Albumin/Globulin Ratio 1.9 (1.2-2.2); Alkaline Phosphatase 64 U/L (46-116); Anion Gap 8 (7-16); Aspartate Amino Transferase 13 U/L (0-34); BUN/Creatinine Ratio 13 Ratio (12-20); Bilirubin,Total 0.5 mg/dL (0.3-1.2); Blood Urea Nitrogen 9 mg/dL (9-23); Calcium 9.1 mg/dL (8.3-10.6); Calcium (Corrected) 9.1 mg/dL (8.5-10.1); Carbon Dioxide 26.1 mMol/L (20.0-31.0); Chloride 106 mMol/L (98-107); Creatinine (Component) 0.7 mg/dL (0.6-1.3); Estimated Creatinine Clearance 90.4 mL/min (>60); Free T4 (Free Thyroxine) 1.14 ng/dL (0.89-1.76); Globulin 2.2 gm/dL (2.3-3.5); Glucose 107 mg/dL (74-106); Osmolality,Calculated 278 (275-295); Phosphorous 3.8 mg/dL (2.4-5.1); Total Protein 6.3 gm/dL (5.7-8.2); eGFR > 60 See Note
[2024-07-03 07:43] VITALS: BP 114/68; PULSE 74; RESP 15; TEMP 36.3; O2SAT 96
[2024-07-03] MEDS: NICOTINE PATCH 21 MG/24 HR PATCH.TD24 TOP (09:23)
[2024-07-03 11:43] VITALS: BP 122/76; PULSE 80; RESP 16; TEMP 36.2; O2SAT 98
--- NOTE | 2024-07-03 12:33 | XR_ITS ---
Examination: Carotid arterial duplex scan, ultrasound. Date and time of exam: July 03, 2024 1254 hours INDICATIONS: Headaches changes image axis week, smoking history 35 years Technique: Multiple sonographic images have been obtained of the carotid arteries and vertebral arteries, B-mode/grayscale imaging and Doppler spectral analysis and color flow Peak systolic and diastolic velocities have been recorded. Systolic diastolic ratios have been calculated. Findings: Right peak systolic velocities: Distal internal carotid artery peak systolic velocity is 1.0 M/sec Proximal internal carotid artery peak systolic velocity is 0.8 M/sec Carotid bifurcation peak systolic velocity is 1.0 M/sec External carotid artery peak systolic velocity is 0.7 M/sec Vertebral artery flow is antegrade. Left peak systolic velocities: Distal internal carotid artery peak systolic velocity is 0.9 M/sec Proximal internal carotid artery peak systolic velocity is 0.6 M/sec Carotid bifurcation peak systolic velocity is 1.0 M/sec External carotid artery peak systolic velocity is 1.0 M/sec Vertebral artery flow is antegrade Doppler waveform analysis demonstrates no spectral broadening Impression: Right internal carotid artery demonstrates 0-10% stenosis. Left internal carotid artery demonstrates 0-10% stenosis.
--- NOTE | 2024-07-03 14:03 | PD.RESPRO ---
Documentation for date of: 07/03/24 Subjective Subjective Interval history: No acute overnight events. Reports resolution of her headache. Denies new symptoms or worsening of symptoms. Denies fever, chills, headaches, chest pain, sob, cough, GI or urinary symptoms. Exam Vital Signs Temp Pulse Resp BP Pulse Ox O2 Del Method O2 Flow Rate 97.2 F 80 16 122/76 98 Room Air 3 07/03/24 11:43 07/03/24 11:43 07/03/24 11:43 07/03/24 11:43 07/03/24 11:43 07/03/24 11:43 07/02/24 14:10 Narrative Exam GENERAL Normal-appearing middle-aged female, no apparent distress. On room air. HEENT NCAT.?JIM. Oral mucosa is moist. Patent Nares NECK Supple, nontender, no thyromegaly, no meningismus, no JVD, no step offs CHEST RRR, no m/g/r CTAB, no w/r/r. Symmetrical chest rise. No intercostal subcostal retraction Atraumatic, nontender, no crepitus, symmetrical expansion. ABDOMEN Soft, flat, nontender. No guarding/rebound tenderness/masses. Bowel sounds presents EXTREMITIES Nontender, no cyanosis, no edema No edema/cyanosis.? SKIN Warm and dry, no jaundice/rashes. NEUROMUSCULAR No lumbar or midline, no CVA, no paraspinal muscle spasm or tenderness. Moves all 4 extremities well, with full ROM and good CSM. MORROW x4, CN II-XII grossly intact. No focal neurologic deficits. PSYCHIATRY Normal mood and affect, cooperative, no SI or HI or hallucinations. Objective Labs 07/03/24 05:46 07/03/24 05:46 Labs: Laboratory Results - last 24 hr 07/02/24 07/02/24 07/03/24 12:20 20:44 05:46 WBC 5.2 RBC 3.92 L Hgb 11.2 L Hct 33.7 L MCV 86 MCH 28.6 MCHC 33.2 RDW Std Deviation 40.1 Plt Count 191 D Neut % (Auto) 59 Lymph % (Auto) 31 Maury % (Auto) 6 Eos % (Auto) 3 Baso % (Auto) 1 Neut # (Auto) 3.1 Lymph # (Auto) 1.6 Maury # (Auto) 0.3 Eos # (Auto) 0.2 Baso # (Auto) 0.0 Immature Gran # (Auto) 0.01 H Absolute Nucleated RBC 0.00 Immature Gran % 0 Nucleated RBC % 0 Sodium 140 Potassium 4.1 Chloride 106 Carbon Dioxide 26.1 Anion Gap 8 BUN 9 Creatinine 0.7 Estim Creat Clear Calc 90.4 eGFR > 60 BUN/Creatinine Ratio 13 Glucose 107 H Calculated Osmolality 278 Calcium 9.1 Corrected Calcium 9.1 Phosphorus 3.8 Magnesium 2.0 Total Bilirubin 0.5 AST 13 ALT < 7 L Alkaline Phosphatase 64 Total Protein 6.3 Albumin 4.1 Globulin 2.2 L Albumin/Globulin Ratio 1.9 Tumor Marker AFP 2.70 Carcinoembryonic Ag 2.3 TSH 2.20 Free T4 1.14 Urine HCG, Qual Negative ABG Interpretation ABG results: 07/01/24 15:38 VBG pH 7.43 VBG pCO2 38 VBG pO2 35 VBG Base Excess 1 Quality Measures Quality Measures none Assessment & Plan Assessment Current Active Medications: Generic Name Dose Route Start Last Admin Trade Name Freq PRN Reason Stop Dose Admin Acetaminophen 1,000 mg 07/02/24 19:59 07/02/24 20:29 Acetaminophen 500 Mg Tablet PO 08/01/24 19:58 1,000 mg Q6HR PRN Administration Fever > 100.3 or Pain/Headache Nicotine 21 mg 07/02/24 20:00 07/03/24 09:23 Nicotine Patch 21 Mg/24 Hr Patch.Td24 TOP 08/01/24 19:59 21 mg QDAY ASIF Administration Plan In summary: 58-year-old female otherwise healthy with no past medical history admitted for presyncopal episode and workup for likely incidental retroperitoneal fluid collection. Currently pending echocardiogram and additional syncope workup as below. Otherwise stable, denies new symptoms or worsening of symptoms. Presyncope DDx: Orthostatics, acute left sphenoid sinusitis, nephritis, possible UTI, possible cardiogenic. No significant past medical history, not on any long-term medications. No electrolyte abnormalities. No UTI on UA. No signs of dehydration. CXR negative. EKG sinus rhythm without acute ST changes. Troponin is normal. No acute pathology on CT head, although there was chronic ethmoid sinusitis and acute left sphenoid sinusitis which could be a contributor. Physical exam is benign. Normal thyroid function. ? Pending echocardiogram ? Pending orthostatics ? Physical therapy ? Pending pancultures Abnormal retroperitoneal fluid Chest CTA shows retroperitoneal density surrounding abdominal aorta and kidneys with differential to include lymphadenopathy or retroperitoneal fibrosis or retropharyngeal infectious process. There is also mild vascular congestion. No signs of pulmonary embolism. CTA abdominal pelvis demonstrated retroperitoneal findings as above with suspected UTI, nephritis, diabetes as a result primary hepatocellular disease. No pericardial or periaortic lymphadenopathy. No bowel obstruction. No signs of symptoms of active malignancy including weight loss, night sweats. No family history of malignancy. She has a history of a uterine fibroid with myomectomy. Possible, without abnormal vaginal bleed. Gynecology was consulted. Did not recommended any gynecologic intervention at this time. Negative hCG, AFP, CEA. CT-guided retroperitoneal fluid sampling was complete. Pending cytology and cultures. ? Pending CEA ? Pending postrenal fluid cytology, cultures. ? Consider gynecological consult. Active tobacco user ? Recommend smoking cessation ? Daily NICOTINE patches Hx of rhinoplasty Incidental findings: CT head showed chronic ethmoid sinusitis and acute left sphenoid sinusitis. Patient has a history of rhinoplasty 1.5 years ago, reports persistent but gradually improving sinus pain. Denies new or worsening pain, fevers, nasal discharge or chills. No indication for ANTIBIOTICS at this time. Recommended outpatient follow-up, referral to ENT. Health maintenance Diet: Regular diet GI prophylaxis: Not indicated DVT prophylaxis: HEPARIN Antibiotics: Not indicated CODE STATUS: Full code Disposition: Pending retroperitoneal sampling results, echocardiogram. Patient case was discussed with attending, Brenton Pastor MD and senior residents Dr. Hernadez and Dr. Sanford. Nahum Millan DO PGYI
[2024-07-03 14:11] VITALS: BP 118/81; BP 128/82; BP 131/71; PULSE 79; PULSE 86; PULSE 97
--- NOTE | 2024-07-03 14:30 | ESDS_ITS ---
Planned Discharge Date 07/03/24 DS: Providers Provider Date of admission: 07/02/24 12:02 Primary care physician: Physician No Primary/Family Admitting Provider: Jose Cruz Graham MD Attending Provider on Admission: Jose Cruz Graham MD Consults: 07/02/24 12:13 Consult to Gynecology Stat Comment: Retroperitoneal fluid collection Consulting Provider: Tarsha Wagoner 07/02/24 15:52 Referral Physical Therapy Routine Comment: Physician Instructions: Attending Provider on DC: Nahum Millan MD Discharging Provider: Nahum Millan MD DS: Diagnosis Problem List Completed Was Problem List Reviewed/Reconciled?: Yes Hospital Course Hospital Course Hospital course: This is a 58-year-old female otherwise healthy with no past medical history admitted for presyncopal episode and workup for incidental finding of retroperitoneal fluid collection. Presyncope workup as below: Vitals have been normal. EKG showed sinus rhythm without acute ST changes. Chest x-ray was clear without pneumonia or pulmonary edema. Head CT showed significant chronic ethmoid sinusitis, acute left sphenoid sinusitis, no acute pathology including hemorrhage or mass effect or midline shift. Oral pelvis CTA showed retroperitoneal density as below. Bilateral internal carotid showed 0-10% stenosis. CBC and CMP showed no abnormalities. UA was negative for UTI. Thyroid function test was normal. She underwent CT-guided appreciate abscess drainage, results including cultures and cytology was pending at the time of discharge. Patient will need follow-up with PCP for this. Additionally, echocardiogram was deferred for outpatient as patient persistently asymptomatic and less likely has cardiac involvement. Blood cultures were collected but showed no growth at 24 hours. Patient otherwise asymptomatic without fever or chills, no leukocytosis. Radiographical findings: * CT head showed chronic ethmoid sinusitis and acute left sphenoid sinusitis. * Patient has a history of rhinoplasty 1.5 years ago, reports persistent but gradually improving sinus pain. Denies new or worsening pain, fevers, nasal discharge or chills. * No indication for ANTIBIOTICS at this time. * Recommended outpatient follow-up, referral to ENT. * CTA Abd/Pelvis showed Retroperitoneal density surrounds the kidneys extending into the lower abdomen and pelvis which appears to be fluid, differential would include prominent urinary tract infection, nephritis, primary hepatocellular disease producing ascites. No definite pericaval or periaortic significant lymphadenopathy. No bowel obstruction. Recommend hepatobiliary sonography follow-up to exclude gallstones. * Denies urinary symptoms such as dysuria frequency or urgency. UA negative for UTI. No fever, no leukocytosis. DISCHARGE INSTRUCTIONS: Follow-up with [facility], at the address below, within 1-2 weeks of discharge to discuss results of peritoneal fluid sample, and bilateral carotid ultrasound. You will need a referral from your PCP to have echocardiogram done outpatient. Recommended smoking cessation. Please discuss with your primary doctor for avai lable options. Return to Emergency Room if symptoms persist, worsen, or new symptoms develop. Continue taking medications as prescribed below: ? TYLENOL 650 MG every 6 hours as needed for headaches ? NICOTINE patches once daily ADMISSION DIAGNOSES: Presyncope Abnormal retroperitoneal fluid Active tobacco user Hx of rhinoplasty Patient case was discussed with attending, Brenton Pastor MD and senior residents Dr. Hernadez and Dr. Sanford. Nahum Millan DO PGYI Time Spent with Patient Time attestation: Total time spent providing and/or coordinating discharge services: Greater than 35 minutes. Exam Vital Signs Temp Pulse Resp BP Pulse Ox O2 Del Method O2 Flow Rate 97.2 F 86 16 131/71 H 98 Room Air 3 07/03/24 11:43 07/03/24 14:11 07/03/24 11:43 07/03/24 14:11 07/03/24 11:43 07/03/24 11:43 07/02/24 14:10 Narrative Exam GENERAL * Normal-appearing middle-aged female, no apparent distress. On room air. HEENT * NCAT.?JIM. Oral mucosa is moist. Patent Nares NECK * Supple, nontender, no thyromegaly, no meningismus, no JVD, no step offs CHEST * RRR, no m/g/r * CTAB, no w/r/r. Symmetrical chest rise. No intercostal subcostal retraction * Atraumatic, nontender, no crepitus, symmetrical expansion. ABDOMEN * Soft, flat, nontender. No guarding/rebound tenderness/masses. * Bowel sounds presents EXTREMITIES * Nontender, no cyanosis, no edema * No edema/cyanosis.? SKIN * Warm and dry, no jaundice/rashes. NEUROMUSCULAR * No lumbar or midline, no CVA, no paraspinal muscle spasm or tenderness. * Moves all 4 extremities well, with full ROM and good CSM. * MORROW x4, CN II-XII grossly intact. * No focal neurologic deficits. PSYCHIATRY * Normal mood and affect, cooperative, no SI or HI or hallucinations. Discharge Plan Plan Patient Disposition: HOME (Self Care) Care Plan Goals: [facility] [address] [place], [place] [id number] Prescriptions/Referrals Prescriptions/Med Rec: New nicotine 21 mg/24 hr Patch 24 Hour 21 mg top QDAY 30 Days Qty: 30 0RF Referrals: No Primary/Family,Physician [Primary Care Provider] - Patient/Caregiver Discharge Instructions Education Materials: What Is Syncope?, Causes of Syncope, Treating Syncope: Prevention Print Language: Kazakh Stand Alone Forms: [employer] Award Info., Patient Portal Info Letter, Work/Release Restrictions Discharge Order Discharge Orders: Discharge (Routine); Ordered 07/03/24 Ordered By: Brenton (HOSPITALIST) Dawit Quality Discharge Quality Measures VTE prophylaxis MD Attestestation MD Attestation Face to face evaluation was performed by me. I have personally seen and examined the patient. I discussed the assessment and plan with the entire medicine team. I reviewed available medical records, imaging studies, laboratory results. I agree with the above subjective data, objective findings, assessment and plan except as corrected by me or noted below Pre syncope, retroperitoneal fluid - ASSEMBLY LINE MACHINE OPERATOR was consulted, their note reviewed, they do not think this is ASSEMBLY LINE MACHINE OPERATOR related, can consider Gen Surgery consult - patient with benign abdomen had IR fluid aspiration- sent tfor labs, cytology- needs to fu with PCP and fluid lab results Carotid duplex done Echo - no communications engineering technician in house - so can be done as outpatient
--- NOTE | 2024-07-03 14:54 | PC.PT ---
PT eval only. Patient is I.
[2024-07-07 07:02] LABS: CA 19-9 Antigen* 15 U/mL (<34)
== END 2024-07-03 15:10 | disposition home or self-care (01) ==
LOC: SERX 07-02 07:09 → SERHOLD 07-02 13:51 → S3EX 07-03 06:38 → SERHOLD 07-03 07:30 → S3EX 07-03 07:30
PROVIDERS: Emergency Medicine; Radiology Diagnostic Radiology; Admitting Provider Internal Medicine; Emergency Provider Emergency Medicine; Visit Provider Internal Medicine
DX: R55 Syncope and collapse (principal); D25.9 Leiomyoma of uterus, unspecified; J01.30 Acute sphenoidal sinusitis, unspecified; J32.2 Chronic ethmoidal sinusitis; Z78.0 Asymptomatic menopausal state; Z01.810 Encounter for preprocedural cardiovascular examination
CPT/HCPCS: 49407; 51701; 36415; 70450; 71045; 71275; 74174; 77012; 80048; 80053; 80307; 80320; 81001; 81025; 82105; 82378; 82803; 83605; 83690; 83735; 83880; 84100; 84439; 84443; 84484; 85025; 85379; 85610; 85730; 86301; 87040; 87070; 87102; 87116; 87205; 87206; 93005; 93880; 96360; 96361; 97162; 99285; A4649; G0378; J3010; J7030; Q9967; A9270; G0480

== ENCOUNTER 2024-07-08 10:05 | Outpatient (AMB) | payer MEDICAID, SELFPAY ==
[2024-07-08 10:17] VITALS: BP 115/72; PULSE 64; RESP 14; TEMP 36.4; O2SAT 97; BMI 25.0
--- NOTE | 2024-07-08 10:17 | ACNOTE_ITS ---
Vital Signs 07/08/24 10:17 Height 1.75 m Height Method Stated Weight 76.921 kg Weight Measurement Method Standing Scale BMI 25.0 BP 115/72 Blood Pressure Source Automatic Cuff Blood Pressure Location Left Upper Arm Position Sitting Respiration 14 Pulse 64 Pulse Source Monitor Temp 97.6 F Temp Source Oral Pulse Oximetry (%) 97 Oxygen Delivery Method Room Air Allergies/Meds Allergies & Medications Allergies No Known Allergies Allergy (Verified 07/08/24 10:21) Medication Reconciliation nicotine 21 mg/24 hr daily transdermal patch 21 mg top QDAY 30 days #30 ea 07/03/24 [Rx Confirmed 07/08/24] ciprofloxacin 0.2 %-hydrocortisone 1 % ear drops,suspension 3 drp otic (ear) BID 7 days #10 mL 07/08/24 [Rx] MA Intake Visit Data Collection PCP or OBGYN visit in last 3 months: No Smoking Status Smoking Status: Heavy (> 1 pack/day) Cessation Counseling Provided: HARLEY was advised that quitting smoking is the single most important factor to protect the health of themselves and their family. Discussed the benefits of quitting smoking with patient. Encouraged patient to quit smoking and provided Cessation assistance materials and resources. Tobacco Use: Cigarette Years smoked: 10 Are you interested in quitting?: No Immunization / Flu Flu Vaccine in the Last 12 Months: No Flu Vaccine Exclusion Criteria: No Exclusion Criteria Past Medical History Past Medical History NEUROLOGIC: Negative Neurological Disorders (occational headache) or Seizures CARDIAC: Negative Cardiac Disorders or Congestive Heart Failure RESPIRATORY: Negative Chronic Obstructive Pulmonary Disease (COPD) or Asthma GASTROINTESTINAL: Positive Gastrointestinal Disorders (occational stomach upset) GENITOURINARY: Negative Genitourinary Disorders or Renal Disease ENDOCRINE: Negative Endocrine Disorders, Diabetes Mellitus Type 1 or Diabetes Mellitus Type 2 HEMATOLOGIC: Negative Blood Disorders or Sickle Cell Disease OTHER HISTORY: Negative Blood Transfusions, Blood Transfusion Reaction or Anesthesia Reactions Social History SMOKING STATUS: Smoking status: Heavy (> 1 pack/day) SECOND HAND EXPOSURE: second hand exposure: Yes ALCOHOL: Alcohol Intake: Current ALCOHOL FREQUENCY: Alcohol Intake Frequency: holidays/special occasions only HOUSING: Housing: House LIVES WITH: Lives With: Family Patient Portal Questionaires Social History Living Situation History Housing: House Tobacco History Smoking Status: Heavy (> 1 pack/day) Packs per Day: 2 Second Hand Smoke Exposure: Yes Alcohol History Alcohol Intake: Current Alcohol Intake Frequency: holidays/special occasions only Review of Systems Report any current symptoms Only answer those that you have currently: Past Medical History Past Medical History Have you ever been diagnosed with any of the following: Neurological Problems Seizures: No Cardiology Problems Congestive Heart Failure: No Respiratory Problems Chronic Obstructive Pulmonary Disease (COPD): No Asthma: No Genital/Urinary Problems Renal Disease: No Endocrine Problems Diabetes Mellitus Type 1: No Diabetes Mellitus Type 2: No Blood Problems Sickle Cell Disease: No Other Problems Blood Transfusions: No Blood Transfusion Reaction: No Anesthesia Reactions: No History of Present Illness HPI Narrative Patient is here for follow-up on recent hospital visit. She was admitted for pre-syncope that occur while she was at work the day of admission. She reports shocking sensation going up her spine while standing at work. She did not fall or lose conscisciouness. She let her self onto the floor and called EMS. Hospital workup included: CT head which showed acute and chronic sinusitis but not acute intracranial pathology. CXR showed no acute pathology. Carotid doppler showed 0-10% steonsis bilaterally CT chest showed mild vascular congestion, retroperitoneal density surrounding abdominal aorta and kidney suggestive of possible LAP, fibrosis, infection. CT abdomen redemonstrated above CT chest findings otherwise benign. EKG showed sinus rhythm without acute st changes. Labs were relatively unremarkable. UA was negative for UTI. Blood cx was negative. Retroperotineal fluid cytology was benign, culture were negative (pending fingal culture) Negative serum tumor marker including AFP, CEA, CA19-9. Today she reports new left ear pain worsening over last few days, without ear discharge. Has tried OTC drops without success. Pain not well managed with OTC analgesics. She also reports chronic sinus pressure and numbness over her nasal bilaterally since naso-plasty 1.5 years ago. She is also endorsing bilateral shoulder pain and posterior neck pain worse with neck flexion and extension. Denies headache, visual/auditory changes, loc, syncope or presyncope, dizziness, lightheadedness, fever, chills, chest pain, sob, cough, nasal discharge, ear discharge, GI or urinary symptoms. Objective/Exam Narrative Physical exam: GENERAL * Normal appearing adult female, mild distress 2/2 to illness and ear pain HEENT * NCAT.?JIM. Oral mucosa is moist. Patent Nares. * Left ear canal swollen, erythemtous, tender to pulling, without active discharge. * Bilateral tympanic membrane visualized, intact, without perforation * Auditory sensation intact brook. NECK * Swollen and tender superficial cervical lymph nodes on the left. * Supple, nontender, no thyromegaly, no meningismus, no JVD, no step offs CHEST * RRR, no m/g/r * CTAB, no w/r/r. Symmetrical chest rise. No intercostal subcostal retraction * Atraumatic, nontender, no crepitus, symmetrical expansion. ABDOMEN * Soft, flat, nontender. No guarding/rebound tenderness/masses. * Bowel sounds presents EXTREMITIES * Nontender, no cyanosis, no edema * No edema/cyanosis.? * Pulses intact throughout SKIN * Warm and dry, no jaundice/rashes. NEUROMUSCULAR * No lumbar or midline, no CVA, no paraspinal muscle spasm or tenderness. * Moves all 4 extremities well, with full ROM and good CSM. * MORROW x4, CN II-XII grossly intact. * No focal neurologic deficits. PSYCHIATRY * Normal mood and affect, cooperative, no SI or HI or hallucinations. Assessment & Plan Diagnosis / Problem List (1) Shoulder pain: Status: Acute Qualifiers: Chronicity: acute Laterality: bilateral Qualified Code(s): M25.511 - Pain in right shoulder; M25.512 - Pain in left shoulder Assessment & Plan: Has worsening brook shoulder pain since stating new job. Appears worse with head and upper body movements. History of bilateral extra ribs. Less concerning for thoracic outlet syndrome. Intact bilateral distal extremities pulses, sensation, muscle strength/movement/mass. Plan: ? Referral PT ? Follow-up PRN or if symptoms worsen or do not improve ? OTC analgesics PRN (2) Otitis externa: Status: Acute Qualifiers: Chronicity: acute Laterality: left Otitis externa type: unspecified type Qualified Code(s): H60.502 - Unspecified acute noninfective otitis externa, left ear Assessment & Plan: Has worsening left ear pain, not improving with OTC analgesics. Exam suggests left otits externa with erythemia, + pull test, tenderness Brook tympanic membranes intact. Plan: ? Cipro with Dexa drops for 7 days ? ENT referal (3) Near syncope: Status: Acute Assessment & Plan: Recently admitted for pre-syncopal episode. Workup mostly benign as explain in HPI. ECHO was not performed due to availability. Denies recurrent syncopal or pre-syncopal episodes. Plan: ? Ordered ECHO (4) Retroperitoneal fluid collection: Status: Acute Assessment & Plan: Had incidental retroperontineal fluid collection on CT during last hospitalization. Fluid sampling was bening for malignant cells or bacteria. Pending fungal cultures. Serology was negative for CEA, CA19-9, AFP. WAGON WASHER was consulted at the time and did not recommend intervention. Currently asympomatic. Hx of myomectomy. Cannot recall if she ever had women screening including PAPs Plan: ? Monitoring ? Recommended referal radiator repairer for screening on next visit. (5) Sinusitis chronic, ethmoidal: Status: Acute Assessment & Plan: As above Plan: As Above (6) Tobacco use: Status: Acute Assessment & Plan: Chronic tobacco smoker. Currently not interested in quiting. CT chest from last visit was negative for lung mass. Plan: ? Consider low-dose CT in 6 months (7) Sinusitis, acute, sphenoidal: Status: Acute Qualifiers: Recurrence: not specified as recurrent Qualified Code(s): J01.30 - Acute sphenoidal sinusitis, unspecified Assessment & Plan: CT head last weak showed acute left sphenoid sinusitis and significant chronic ethmoid sinusitis. Hx of rhinoplasty done 1.5 years ago. Reports ongoing nasal congestion and loss sensation over bilateral nostrils. Plan: ? Refer ENT Orders: Orders [place] echo doppler complete 07/08/24 Nahum Millan MD [id number] - Syncope and collapse Referrals Physical Therapy - Referral Nahum Millan MD M25.519 - Pain in unspecified shoulder Ears, Nose, and Throat Nahum Millan MD H60.90 - Unspecified otitis externa, unspecified ear Additional Assessment Internal Medicine Attending Note: Case discussed with and agree with note and management plan of Resident Physician as per Resident's Note above. Issues of concern for present visit are as follows: New patient to clinic following hospitalization for near syncopal episode. Hospital workup includes CT head (acute and chronic sinusitis), negative chest x-ray, negative carotid Dopplers, CT chest and abdomen which both demonstrated retroperitoneal density felt to be a fluid collection. EKG unremarkable. Peritoneal fluid was sampled, negative workup. No further presyncopal symptoms. Complaining of left ear pain. Exam consistent with otitis externa, we will treat with drops. Also complaining of bilateral shoulder pain and posterior neck pain that is worse with movement. Does have history of bilateral extra ribs. Symptoms not consistent with thoracic outlet syndrome. Will make a referral to physical therapy. May use OTC anti-inflammatory/pain medication as needed. Note made that inpatient workup for near syncope did not include echocardiogram as was not available. We will order that today. Patient is current smoker. Counseled regarding smoking cessation. Not interested in quitting at this time. Patient reporting ongoing nasal congestion and sensation loss over the bilateral nostrils, history of rhinoplasty done 1-1/2 years ago. We will have the patient follow-up with ear nose throat to see if there is anything more that can be done for the sinuses. Ramon Weiss MD Physician Billing New Patient New Patient: E/M Level 3-CPT 14100 Office Procedures [facility] Level of Care Nursing/Assessment Patient Status: Established Patient Nursing Assessment/Reassessment: Medication Reconciliation, Update PMH in EMR and Vital Signs Coordination of Care: Complex Care and Chronic Disease 1-5, Consent,records obtained, informed consent and Lab and Imaging orders Established Patient Charge Established Patient Point Assignment: 75 Established Patient Point Charge: EP Level 2 (40-75)
== END 2024-07-08 12:00 | disposition home or self-care (01) ==
DX: H60.92 Unspecified otitis externa, left ear (principal); J01.30 Acute sphenoidal sinusitis, unspecified; M25.511 Pain in right shoulder; M25.512 Pain in left shoulder; R55 Syncope and collapse
CPT/HCPCS: 99212; G0463